=== PATIENT | male | born 1985 | race Caucasian/White ===

== ENCOUNTER 2020-12-12 10:29 | Emergency (ER) | payer MEDICARE, SELFPAY ==
--- NOTE | ~2020-12-12 | XR_ITS ---
EXAMINATION: XR foot RT min 3V EXAM DATE: 12/12/2020 11:33 INDICATION: Lateral Pain Bruising Swelling X 3days S/P Fall TECHNIQUE: Right foot dorsoplantar, lateral and oblique projections obtained and reviewed. There is no prior study for comparison. FINDINGS: There is acute closed posttraumatic oblique fracture through the right 5th metatarsal shaft with approximately 50% shaft width displacement at its distal aspect, and mild angulation. There is overlying soft tissue swelling. No other acute findings. Mild hallux valgus. IMPRESSION: Right 5th metatarsal shaft fracture. Reviewed, dictated and finalized at location A.
[2020-12-12 11:05] VITALS: BP 134/100; PULSE 91; RESP 18; TEMP 36.9; O2SAT 97
--- NOTE | 2020-12-12 11:19 | ED.LOWEXIN ---
HPI - Extremity Injury (Lower) General Chief Complaint: Extremity Injury, Lower Stated Complaint: Pain R foot Time Seen by Provider: 12/12/20 11:19 Source: patient Mode of arrival: ambulatory Limitations: no limitations History of Present Illness HPI Narrative: 35-year-old man comes in today complaining of right lateral foot pain that started 3 days ago as well while he was playing basketball and hit his foot on a curb, causing him to twist. States that he has had pain swelling and bruising that is getting worse since. Is limited weight-bearing. He denies any numbness or tingling. complaint: foot injury Onset (ago): day(s) (3) Type of Injury: inversion Place: street/outdoors Severity: moderate Relieving factors: rest Exacerbating factors: weight bearing, movement and palpation Context: jumping Associated symptoms: swelling and able to partially bear weight Other symptoms: none Related Data Allergies Allergy/AdvReac Type Severity Reaction Status Date / Time cefaclor [Ceclor] Allergy Intermediate Hives Verified 12/12/20 11:15 Penicillins Allergy Intermediate Unknown Verified 12/12/20 11:15 Review of Systems Review of Systems: All systems reviewed & are unremarkable except as noted in HPI and below ENT: Denies vertigo and Denies sore throat Cardiovascular: Cardiovascular: Denies chest pain Respiratory: Respiratory: Denies cough and Denies dyspnea Gastrointestinal: Gastrointestinal: Denies nausea and Denies vomiting Musculoskeletal: Musculoskeletal: Denies back pain, Reports arthralgias and Reports joint swelling Integumentary/Breasts: Skin/Breast: Denies pruritus, Denies rash and Denies skin ulcer Neurologic: Denies vertigo, Denies dizziness and Denies syncope Hematologic/Lymphatic: Hematologic/Lymphatic: Denies easy bleeding and Denies easy bruising Allergic/Immunologic: Allergic/Immunologic: Denies lip swelling and Denies throat swelling PMFSH Past Medical History Medical History (Updated 12/12/20 @ 12:17 by Tong Martinez MD) Impaired vision Surgical History Surgical History (Updated 12/12/20 @ 12:13 by Tong Martinez MD) S/P pericardial window creation Social History Social History (Updated 12/12/20 @ 12:14 by Tong Martinez MD) Smoking status: Never smoker Living arrangements: with family Exam Const: General: alert Orientation/consciousness: patient oriented x3 Other: [id number] acute distress. Eyes: Conjunctivae: conjunctivae normal Pupils: Equal, round and reactive pupils present EOM: EOMs intact bilaterally Resp: Effort & Inspection: normal respiratory effort and not labored Auscultation: clear to auscultation bilaterally, no rales, no rhonchi and no wheezes Cardio: Rate: regular rate Rhythm: regular rhythm Heart sounds: no murmurs Skin: General skin exam: normal color, no jaundice and no pallor Rashes: no rashes Neuro: General: patient oriented x3, moves all extremities, no focal motor deficits and CN's II-XI intact bilaterally Speech: normal speech Gait exam (Neuro): Normal gait present Extrem: General: normal to inspection and no clubbing, cyanosis or edema Psych: Appearance: grossly normal and well kempt Mental Status: mental status grossly normal Affect: normal affect Attitude: cooperative Thought content: Yes Normal thought content present Discharge Plan Discharge Clinical Impression: Closed fracture of fifth metatarsal bone Qualifiers: Encounter type: initial encounter Fracture alignment: displaced Laterality: right Qualified Code(s): S92.351A - Displaced fracture of fifth metatarsal bone, right foot, initial encounter for closed fracture Patient Disposition: Home, Self-Care Condition: Stable Instructions: Foot Fracture in Adults (ED) Additional Instructions: Rest, ice, elevation, ibuprofen. Follow up with an orthopedist for further evaluation and treatment. Prescriptions: New hydrocodone-acetaminophen 5-325 mg tablet
--- NOTE | 2020-12-12 11:27 | PC.NURSE ---
REPORT RECEIVED FROM HOLA DENIS
[2020-12-12 12:20] VITALS: RESP 15
== END 2020-12-12 12:32 | disposition home or self-care (01) ==
PROVIDERS: Emergency Provider Emergency Medicine; PCP Family Medicine
DX: S92.351A Displaced fracture of fifth metatarsal bone, right foot, initial encounter for closed fracture (principal); W22.8XXA Striking against or struck by other objects, initial encounter
CPT/HCPCS: 73630; 99283; 99284

== ENCOUNTER 2021-01-14 09:17 | Outpatient (CLI) | payer MEDICARE, SELFPAY ==
--- NOTE | ~2021-01-14 | XR_ITS ---
XR foot RT min 3V DATE: 01/14/2021 09:46 INDICATION: Fifth metatarsal fracture TECHNIQUE: 3 views COMPARISON: 12/12/2020 right foot FINDINGS: Again noted is a linear oblique fracture through the distal shaft of the fifth metatarsal b one. There is interval mildly increased medial displacement, approximately 5 mm, with some overriding of the fracture fragments. Organized callus formation is noted at the proximal fracture site consistent with interval healing/ne w bone formation. There is hallux valgus and bunion deformity. IMPRESSION: Healing nondisplaced mildly overriding linear oblique fracture of the distal shaft of the fifth metatarsal bone Reviewed, dictated and finalized at location B. IMPRESSION: Healing nondisplaced mildly overriding linear oblique fracture of t he distal shaft of the fifth metatarsal bone
== END 2021-01-14 09:18 | disposition home or self-care (01) ==
LOC: CHSIMG 09:20
PROVIDERS: PCP Family Medicine; Visit Provider Orthopaedic Surgery
DX: M79.671 Pain in right foot (principal)
CPT/HCPCS: 73630